=== PATIENT | male | born 1970 | race Caucasian/White ===

== ENCOUNTER → 2017-06-02 | Outpatient (CLI) | payer BC ==
--- NOTE | 2017-06-02 23:45 | MR ---
EXAMINATION TYPE: MR knee RT wo con DATE OF EXAM: 06/02/2017 COMPARISON: NONE HISTORY: TECHNIQUE: Multiplanar, multisequence imaging of the right knee is performed without IV contrast. FINDINGS: There is a moderate knee joint effusion. There is a popliteal cyst. The anterior and posterior crucia te ligaments are intact. There is some degenerative signal within the anterior horn of the lateral me niscus. There is thinning of the anterior horn of the medial meniscus with anterior displacement. The re is increased signal horizontally through the posterior horn of the medial meniscus. There is hyper trophic spurring on the femoral and tibial condyles. I see no fracture. The collateral ligaments appe ar intact. IMPRESSION: Knee joint effusion. Popliteal cyst. No evidence of ligamentous tear. Horizontal tear of the posterior horn medial meniscus and mild degenerative thinning and displacement of the anterior horn of the medial meniscus. Small horizontal tear of the anterior horn lateral meni scus. Mild hypertrophic osteoarthritic spurring.
== END | disposition home or self-care (01) ==
LOC: RADMRIMAIN 20:16
PROVIDERS: ATTEND Family Medicine
DX: M25.461 Effusion, right knee (principal); M71.20 Synovial cyst of popliteal space [Baker], unspecified knee; S83.241A Other tear of medial meniscus, current injury, right knee, initial encounter; S83.281A Other tear of lateral meniscus, current injury, right knee, initial encounter

== ENCOUNTER 2022-09-09 03:02 | Emergency (ER) | payer BC ==
[2022-09-09] MEDS ORDERED: ONDANSETRON ODT 4 MG TAB PO STA (04:23)
--- NOTE | 2022-09-09 04:33 | ED ---
General Adult HPI - General Chief complaint: Abdominal Pain Stated complaint: Post Op complication Time Seen by Provider: 09/09/22 03:40 Source: patient, RN notes reviewed, old records reviewed Mode of arrival: ambulatory - History of Present Illness Initial comments: Patient is a 52-year-old male with no significant past medical history other than recent right knee surgery placed on oxycodone at home for pain presents emergency department over concern for constipation. He has not had a good bowel movement since the day before the surgery. Surgery was last . Last bowel movement was last Monday. Did have a small bowel movement at home prior to arrival. Has attempted stool softeners over the last 24 hours with minimal improvement as well as MiraLAX. Presents for further evaluation at this time. Denies any vomiting but does endorse mild nausea which has been present since the surgery. Denies chest pain or shortness of breath. Denies any fevers or chills. No other acute complaints at this time. - Related Data Allergies Allergy/AdvReac Type Severity Reaction Status Date / Time amoxicillin [From Augmentin] Allergy Unknown Verified 09/09/22 04:31 clavulanic acid Allergy Unknown Verified 09/09/22 04:31 [From Augmentin] Review of Systems ROS Statement: Those systems with pertinent positive or pertinent negative responses have been documented in the HPI. Review of Systems: CONST: Denies fever EYES: Denies blurry vision ENT: Denies nasal congestion C/V: Denies Chest pain RESP: Denies shortness of breath GI: Endorses abdominal distention. Concern for constipation. : Denies dysuria SKIN: Denies rash. MSK: Denies joint pain. NEURO: Denies headache ROS Other: All systems not noted in ROS Statement are negative. Past Medical History Past Medical History: GERD/Reflux, Hyperlipidemia, Hypertension History of Any Multi-Drug Resistant Organisms: None Reported Past Surgical History: Back Surgery, Hernia Repair, Orthopedic Surgery Past Psychological History: No Psychological Hx Reported Smoking Status: Former smoker Past Alcohol Use History: None Reported Past Drug Use History: None Reported General Exam - General Exam Comments Initial Comments: General: Appears in no acute distress. HEAD: Normal with no signs of head trauma. EYES: EOMI ENT: Hearing grossly intact, normal oropharynx. RESPIRATORY: Clear breath sounds bilaterally. No wheezes, rales, or rhonchi. C/V: Regular rate and rhythm. S1 and S2 auscultated, peripheral pulses 2+ and intact throughout ABD: Abdomen soft, nontender. Mild distention. EXT: Decreased range of motion of the right knee secondary to recent surgery. SKIN: No rashes or lesions observed on exposed skin. NEURO: Alert and oriented 4. Course Vital Signs 09/09/22 09/09/22 03:38 06:23 Temperature 98 F 97.9 F Pulse Rate 99 84 Respiratory 19 18 Rate Blood Pressure 126/96 150/74 O2 Sat by Pulse 98 98 Oximetry Medical Decision Making - Medical Decision Making Was pt. sent in by a medical professional or institution (, [facility]DA, TRAVERTINE INSTALLER, urgent care, hospital, or residential...) When possible be specific @ -No Did you speak to anyone other than the patient for history (EMS, parent, family, police, friend...)? What history was obtained from this source @ -No Did you review nursing and triage notes (agree or disagree)? Why? @ -I reviewed and agree with nursing and triage notes Were old charts reviewed (outside hosp., previous admission, EMS record, old EKG, old radiological studies, urgent care reports/EKG's, residential records)? Report findings @ -No old charts were reviewed Differential Diagnosis (chest pain, altered mental status, abdominal pain women, abdominal pain men, vaginal bleeding, weakness, fever, dyspnea, syncope, headache, dizziness, GI bleed, back pain, seizure, CVA, palpatations, mental health, musculoskeletal)? @ -Constipation, small bowel obstruction, postop complication, opiate medication side effect. This list is not all inclusive. EKG interpreted by me (3pts min.). @ -None done X-rays interpreted by me (1pt min.). @ -KUB x-ray shows constipation with no obvious signs of bowel obstruction. CT interpreted by me (1pt min.). @ -None done U/S interpreted by me (1pt. min.). @ -None done What testing was considered but not performed or refused? (CT, X-rays, U/S, labs)? Why? @ -None What meds were considered but not given or refused? Why? @ -None Did you discuss the management of the patient with other professionals (professionals i.e. , MANDA, TRAVERTINE INSTALLER, lab, RT, psych nurse, director of social work, electric sign assembler, teacher, highway patrol officer, case investigator)? Give summary @ -No Was smoking cessation discussed for >3mins.? @ -No Was critical care preformed (if so, how long)? @ -No Were there social determinants of health that impacted care today? How? (Homelessness, low income, unemployed, alcoholism, drug addiction, transportation, low edu. Level, literacy, decrease access to med. care, long term, rehab)? @ -No Was there de-escalation of care discussed even if they declined (Discuss DNR or withdrawal of care, Hospice)? DNR status @ -No What co-morbidities impacted this encounter? (DM, HTN, Smoking, COPD, CAD, Cancer, CVA, ARF, Chemo, Hep., AIDS, mental health diagnosis, sleep apnea, morbid obesity)? @ -None Was patient admitted / discharged? Hospital course, mention meds given and route, prescriptions, significant lab abnormalities, going to OR and other pertinent info. @ -Based on the patient's presentation and physical exam, I'm concerned for constipation for the patient. He has been on opiate medications which are prone to cause this. We'll obtain an abdominal x-ray as well as provide him with a dose of Zofran ODT. He was in agreement this plan. Vital signs within acceptable limits. KUB x-ray showed no signs of obstruction but constipation. Patient did receive an enema. Has had multiple bowel movements here in the department. Is feeling improved. Will be discharged home at this time. Discussed using stool softeners and MiraLAX at home. Patient was in agreement with this plan. I instructed the patient to follow up with their PCP in the next 1-3 days. I explained that the patient should return to the emergency department if they experience any worsening symptoms. Strict return precautions were discussed with the patient. The patient expressed understanding of these instructions. I answered all questions that the patient had. The patient was discharged home in [good] condition with their prescriptions and follow up information. Undiagnosed new problem with uncertain prognosis? @ -No Drug Therapy requiring intensive monitoring for toxicity (Heparin, Nitro, Insulin, Cardizem)? @ -No Were any procedures done? @ -No Diagnosis/symptom? @ -Constipation, likely secondary to opiate medications Acute, or Chronic, or Acute on Chronic? @ -Acute Uncomplicated (without systemic symptoms) or Complicated (systemic symptoms)? @ -Uncomplicated Side effects of treatment? @ -none Exacerbation, Progression, or Severe Exacerbation] @ -no Poses a threat to life or bodily function? @ -no Disposition Clinical Impression: Constipation Disposition: HOME SELF-CARE Condition: Good Is patient prescribed a controlled substance at d/c from ED?: No Referrals: Anat Rivera DO [Primary Care Provider] - 1-2 days Time of Disposition: 05:42
--- NOTE | 2022-09-09 05:30 | XR ---
EXAMINATION TYPE: XR KUB DATE OF EXAM: 09/09/2022 4:03 AM CLINICAL HISTORY: Constipation. TECHNIQUE: 3 supine KUB images of the abdomen are obtained. COMPARISON: None. FINDINGS: Gas seen in nondistended stomach. Scattered gas is seen in non-distended small bowel loops. Gas and fecal material is seen in non-distended colon. Single left-sided pelvic phlebolith. Lung bas es are essentially clear. Moderate axial joint space loss in both hips IMPRESSION: Overall nonobstructive bowel gas pattern. No significant colonic fecal stasis.
[2022-09-09 06:24] VITALS: BP 150/74; PULSE 84; RESP 18; TEMP 97.9
== END 2022-09-09 06:23 | disposition home or self-care (01) ==
LOC: EC 03:02
DX: K59.00 Constipation, unspecified (principal); I10 Essential (primary) hypertension; Z87.891 Personal history of nicotine dependence; Z88.0 Allergy status to penicillin; Z88.1 Allergy status to other antibiotic agents
CPT/HCPCS: 74018; 99283